=== PATIENT | female | born 1955 | race Caucasian/White ===

== ENCOUNTER 2016-09-24 07:59 | Emergency (ER) | payer BC ==
[~2016-09-24] VITALS: Ht 172.7 cm; Wt 85.7 kg
[2016-09-24 08:00] VITALS: BP_SYST 154
--- NOTE | 2016-09-24 08:00 | NUR ---
Arrived via [facility] for syncope after waking up with nosebleed. States that she was alarmed by the blood. Reports narrowing of vision. reported her to have loss of consciousness for 1 minute. BS enroutima 131. Placed in room 2 . Placed on cardiac monitor technician, blood pressure machine and pulse oximeter. To gown for exam. Side rails up. Report given to Blanche KABA.
--- NOTE | 2016-09-24 08:01 | NUR ---
ER Dr. Cook at bedside examining patient.
--- NOTE | 2016-09-24 08:05 | NUR ---
Patient in stable condition, alert and oriented x4. States that she woke up this AM around 0720 with a nose bleed, went to the restroom and sat on the toilet and realized that she was swallowing alot of blood, and then she woke up to her her telling her she passed out with eyes open. present, states that her head fell back while on toilet and eyes rolled back into head, along with slight shaking of body for "seconds only". Patient or denies falling off toilet or any injury to head or body. No deformities/injuries noted. No dizziness per patient. No other complaints/injuries per patient/ or noted.
[2016-09-24] MEDS ORDERED: NACL 0.9% 1,000 ML IV ONE (08:30)
--- NOTE | 2016-09-24 08:38 | NUR ---
Patient ambulated to [facility] with steady gati to provide urine sample.
[2016-09-24 08:44] LABS: BASOPHILS % (AUTO) 0.9 % (0.0-2.0); EOSINOPHILS # (AUTO) 0.2 K/uL (0.0-0.4); EOSINOPHILS % (AUTO) 3.1 % (0.0-4.0); HEMOGLOBIN 13.4 g/dL (12.0-16.0); LYMPHOCYTES # (AUTO) 1.8 K/uL (1.0-5.5); LYMPHOCYTES % (AUTO) 37.2 % (20.5-51.5); MEAN CORPUSCULAR HEMOGLOBIN 32 pg (27-31); MEAN CORPUSCULAR HGB CONC 34 % (32-36); MEAN CORPUSCULAR VOLUME 95 fL (79.0-98.0); MONOCYTES # (AUTO) 0.4 K/uL (0.0-1.0); MONOCYTES % (AUTO) 7.6 % (1.7-9.3); NEUTROPHILS # (AUTO) 2.5 K/uL (1.8-7.7); NEUTROPHILS % (AUTO) 51.2 % (40.0-70.0); PLATELET COUNT (AUTO) 254 K/uL (130-430); RED BLOOD CELL COUNT(AUTO) 4.13 MIL/uL (4.2-6.2); RED CELL DISTRIBUTION WIDTH 12.2 % (9.0-15.0); WHITE BLOOD COUNT (AUTO) 4.9 K/uL (4.8-10.8)
[2016-09-24 08:51] LABS: CALCIUM 9.2 mg/dL (8.4-11.0); CREATININE 0.87 mg/dL (0.55-1.30); POTASSIUM 4.5 mmol/L (3.5-5.1)
[2016-09-24 08:54] LABS: PROTHROMBIN TIME 10.4 SECS (9.5-12.5)
[2016-09-24 08:56] LABS: BILIRUBIN,URINE NEGATIVE (NEGATIVE); BLOOD, URINE NEGATIVE (NEGATIVE); CLARITY/URINE SL HAZY (CLEAR); COLOR,URINE YELLOW (YELLOW); GLUCOSE,URINE NEGATIVE (NEGATIVE); KETONES,URINE NEGATIVE (NEGATIVE); LEUKOCYTE ESTERASE ,URINE TRACE (NEGATIVE); NITRITE, URINE NEGATIVE (NEGATIVE); PH,URINE 5.5 (5.0-8.0); PROTEIN URINE NEGATIVE (NEGATIVE); UROBILINOGEN,URINE 0.2 (0.2-1.0)
[2016-09-24 09:05] LABS: ALBUMIN 3.8 g/dL (3.4-4.8); TOTAL BILIRUBIN 0.3 mg/dL (0.0-1.0); TOTAL PROTEIN, SERUM 6.9 g/dL (6.4-8.3)
[2016-09-24 09:05] LABS: BACTERIA,URINE FEW /HPF (None Seen); RBC,URINE NONE SEEN /HPF (0-3); WBC,URINE 0-3 /HPF (0-3)
[2016-09-24 09:06] LABS: MUCUS,URINE 1+ /LPF (None Seen)
[2016-09-24 10:20] VITALS: BP_SYST 148
--- NOTE | 2016-09-24 10:20 | NUR ---
Patient given written and verbal discharge instructions and verbalizes understanding. ER MD discussed with patient the results and treatment provided. Given copies of tests performed in ER. Patient in stable condition. ID arm band removed. IV catheter removed intact and dressing applied, no active bleeding. Patient educated on pain management and to follow up with PMD. Pain Scale 0/10. Opportunity for questions provided and answered.
== END 2016-09-24 10:20 | disposition home or self-care (01) ==
LOC: SED 07:59
DX: R55 Syncope and collapse (principal); R03.0 Elevated blood-pressure reading, without diagnosis of hypertension; E78.5 Hyperlipidemia, unspecified; E78.00 Pure hypercholesterolemia, unspecified; Z88.5 Allergy status to narcotic agent
CPT/HCPCS: 36415; 70450; 71010; 80053; 81000; 84484; 85025; 85610; 85730; 93005; 96360; 99285; J7030